=== PATIENT | female | born 1970 | race African-American/Black ===

== ENCOUNTER 2017-02-24 05:54 | Observation (INO) | payer OTHER ==
[2017-02-24] VITALS (11 sets, daily range): BP systolic 104–141; BP diastolic 56–88; PULSE 102–126; TEMP 98.1–98.5
[~2017-02-24] VITALS: Ht 170.2 cm; Wt 114.9 kg
[2017-02-24] MEDS ORDERED: LOTREL 5/20 CAP1 CAP PO (06:30)
[2017-02-24] MEDS ORDERED: JANUVIA 100MG100 MG PO (06:31)
[2017-02-24] MEDS ORDERED: GLUCOPHAGE500 MG/TAB PO (06:32)
[2017-02-24] MEDS ORDERED: LEXAPRO20 MG PO (06:32)
[2017-02-24] MEDS ORDERED: D-2000 90 MG-201 TAB PO (06:33)
[2017-02-24 21:05] LABS: BASO % 0.2 % (0.0-2.0); GRAN # 11.1 (1.4-6.5); GRAN % 84.4 % (42.2-75.2); LYMPH # 1.4 (1.2-3.4); LYMPH % 10.6 % (20.0-51.0); MEAN CELL VOLUME 84 fl (80.0-100.0); MEAN CORPUSCULAR HEMOGLOBIN 28 pg (27.0-31.0); MEAN CORPUSCULAR HGB CONC 33 g/dl (33.0-37.0); MEAN PLATELET VOLUME 8.8 fl (7.4-10.4); MONO # 0.6 (0.1-0.6); MONO % 4.3 % (1.7-9.3); PLATELET COUNT 247 K/mm3 (130-400); RED BLOOD COUNT 4.34 M/mm3 (4.10-5.30); REDCELL DISTRIBUTION WIDTH-CV 13.8 % (11.5-14.5); WHITE BLOOD COUNT 13.1 K/mm3 (4.8-10.8)
[2017-02-24 21:07] LABS: HEMATOCRIT 36.5 % (37.0-47.0)
[2017-02-25 03:00] VITALS: BP 122/69; PULSE 106; TEMP 98.1
[2017-02-25 06:11] VITALS: BP 107/60; PULSE 110; TEMP 98.1
[2017-02-25 09:09] VITALS: BP 136/63; PULSE 110; TEMP 98.7
[2017-02-25 13:29] VITALS: BP 114/69; PULSE 101; TEMP 98.5
[2017-02-25 14:30] LABS: BASO % 0.2 % (0.0-2.0); EOS # 0.1 (0.0-0.7); EOS % 0.4 % (0-4.0); GRAN # 8.7 (1.4-6.5); GRAN % 65.5 % (42.2-75.2); HEMATOCRIT 34.3 % (37.0-47.0); HEMOGLOBIN 11.3 g/dl (12.5-16.0); LYMPH # 3.7 (1.2-3.4); LYMPH % 27.6 % (20.0-51.0); MEAN CELL VOLUME 85 fl (80.0-100.0); MEAN CORPUSCULAR HEMOGLOBIN 28 pg (27.0-31.0); MEAN CORPUSCULAR HGB CONC 33 g/dl (33.0-37.0); MEAN PLATELET VOLUME 8.8 fl (7.4-10.4); MONO # 0.7 (0.1-0.6); MONO % 5.6 % (1.7-9.3); PLATELET COUNT 219 K/mm3 (130-400); RED BLOOD COUNT 4.05 M/mm3 (4.10-5.30); REDCELL DISTRIBUTION WIDTH-CV 14.2 % (11.5-14.5); WHITE BLOOD COUNT 13.3 K/mm3 (4.8-10.8)
[2017-02-25 14:42] LABS: ADJUSTED CALCIUM 8.8 mg/dL (8.4-10.2); BILIRUBIN,TOTAL 0.3 mg/dL (0.0-1.0); CALCIUM 8.8 mg/dL (8.4-10.2); CREATININE, serum 1.01 mg/dL (0.52-1.25); MAGNESIUM 2.1 mg/dL (1.6-2.3); POTASSIUM 3.8 mmol/L (3.4-5.0)
[2017-02-25 15:13] LABS: THYROID STIMULATING HORMONE 2.14 uIU/mL (0.465-4.680)
[2017-02-25] MEDS ORDERED: PERCOCET 325 MG1 TA2 PO (17:07)
== END 2017-02-25 18:21 | disposition home or self-care (01) ==
LOC: SDCO 05:54 → SURG 12:13 → SDCO 02-25 15:00 → SURG 02-25 15:01
PROVIDERS: Nurse Practitioner Family; Urology
DX: N39.3 Stress incontinence (female) (male) (principal); I10 Essential (primary) hypertension; E11.9 Type 2 diabetes mellitus without complications; G47.33 Obstructive sleep apnea (adult) (pediatric); Z80.3 Family history of malignant neoplasm of breast
CPT/HCPCS: OP; 99222; G0378; J0690; J1100; J1170; J2405; J2704; J3010; J7030